=== PATIENT | female | born 1990 | race Caucasian/White ===

== ENCOUNTER 2017-05-30 05:59 | Observation (INO) | payer OTHER ==
[2017-05-30] VITALS (7 sets, daily range): BP systolic 103–109; BP diastolic 67–70; PULSE 90–107; TEMP 36.4–36.7; O2SAT 95–99; Ht 175.3 cm; Wt 83.5 kg
[~2017-05-30] VITALS: Ht 175.3 cm; Wt 83.5 kg
[~2017-05-30 05:59] MED LIST: BCPILLS PO; LRT5 PO; OXYCODONE/ACETAMINOPHEN 5-325 TAB PO SCH
[2017-05-30] MEDS ORDERED: FERR325T5 PO (06:25)
[2017-05-30 06:32] LABS: BASO % 0.2 %; BASO ABS # 0.02 K/uL (0-0.2); COMPLETE YES; EOS % 0.8 %; HEMATOCRIT 41.8 % (37-47); IG% 0.2 %; LYMPH % 14.5 %; LYMPH ABS # 1.83 K/uL (1.2-3.4); MEAN CELL VOLUME 89.9 fL (80-100); MEAN CORPUSCULAR HEMOGLOBIN 29.7 pg (25-34); MONO % 4.4 %; NEUT % 79.9 %; PLATELET COUNT 269 K/uL (130-400); RED BLOOD COUNT 4.65 M/uL (4.2-5.4); WHITE BLOOD COUNT 12.61 K/uL (4.8-10.8)
[2017-05-30] MEDS ORDERED: SODIUM CHLORIDE 0.9% 1000ML 1,000 ML IV STA ×2 (06:34→09:11)
[2017-05-30] MEDS ORDERED: ONDANSETRON INJ 2 MG/ML 2 ML VIAL IV STA (06:34)
[2017-05-30] MEDS ORDERED: FENTANYL CITRATE INJ 50 MCG/1 ML 2 ML VIAL IV STA ×2 (06:34→08:57)
[2017-05-30 06:41] LABS: URINE APPEARANCE CLEAR (CLEAR); URINE BILIRUBIN NEG (NEG); URINE COLOR YELLOW; URINE EPITHELIAL CELL AUTO 20-30 /lpf (0-5); URINE NITRITE NEG (NEG); URINE PH 8.5 (4.5-7.5); URINE SPECIFIC GRAVITY 1.016 (1.000-1.030); UROBILINOGEN NEG (NEG); ZZUR CULT IF INDIC CLEAN CATCH YES
[2017-05-30 06:42] LABS: MANUAL MICROSCOPIC REQUIRED? NO; REVIEW REQ? NO
--- NOTE | 2017-05-30 06:45 | EMERGENCY ROOM VISIT NOTE ---
History Report prepared by Jacinda: Linda Siddiqui Under the Supervision of: Dr. Antony Washington M.D. First contact with patient: 06:32 Chief Complaint: ABDOMINAL PAIN Stated Complaint: ABD PAIN Nursing Triage Summary: Pt complains of lower abdominal pain since 7pm last night. Denies any nausea, vomiting or diarrhea. +urinary frequency History of Present Illness The patient is a 27 year old female who presents to the Emergency Room with complaints of persistent lower abdominal pain that began around 1900 last evening. She currently rates her discomfort as a 7/10 in severity. The patient reports having similar pain in the past, but denies ever this intense. She states that she typically has to take iron supplements around her menstrual cycles due to intense cramps. The patient denies any history of ovarian cysts. She states that her pain is worsened with movement. The patient denies any chance of and denies any prior pregnancies. She states that her last normal menstrual period was two weeks ago. The patient denies any contraceptive use. She associates chills with her symptoms today. The patient reports a history of having lymph nodes removed from her abdomen when she was younger, but denies any appendectomy or cholecystectomy. She states that her last bowel movement was around 1900, denying any constipation or diarrhea. The patient denies any active medical problems or being on any medications. She denies any fever, cough, congestion, nausea, vomiting, urinary symptoms, or vaginal burning or itching. Source of History: patient Onset: 1900 last evening Position: abdomen (lower) Symptom Intensity: 7/10 Timing: other (persistent) Modifying Factors (Worsening): movement Associated Symptoms: + chills, No fevers, No cough, No nausea, No vomiting, No diarrhea, No urinary symptoms Review of Systems See HPI for pertinent positives and negatives. A total of ten systems were reviewed and were otherwise negative. Past Medical & Surgical Medical Problems: (1) Asthma Surgical Problems: (1) H/O wisdom tooth extraction Family History Cancer Gallbladder disease Hypertension Social History Smoking Status: Never Smoker Alcohol Use: none Marital Status: Housing Status: lives with significant other Occupation Status: employed Current/Historical Medications Scheduled Ferrous Sulfate (Ferrous Sulfate), 325 MG PO DAILY Scheduled PRN Oxycodone/Acetaminophen 5MG/325MG (Percocet 5MG/325MG), 1-2 TABLETS PO Q4H PRN for Pain Allergies Coded Allergies: No Known Allergies (Unverified , 05/30/17) Physical Exam Vital Signs Date Time Temp Pulse Resp B/P (MAP) Pulse Ox O2 Delivery O2 Flow Rate FiO2 05/30/17 10:00 36.5 74 16 115/75 99 05/30/17 07:55 62 16 109/64 98 Room Air 05/30/17 06:03 37.0 101 18 104/67 96 Room Air Physical Exam GENERAL: Awake, alert, in no distress HENT: Normocephalic, atraumatic. Dry mucous membranes. EYES: Normal conjunctiva. Sclera non-icteric. NECK: Supple. No nuchal rigidity. FROM. No JVD. RESPIRATORY: Clear to auscultation. CARDIAC: Regular rate, normal rhythm. Extremities warm and well perfused. Pulses equal. ABDOMEN: Soft, non-distended. Right lower quadrant tenderness to palpation at McBurneys point, no peritoneal signs. No rebound or guarding. No masses. RECTAL: Deferred. MUSCULOSKELETAL: Chest examination reveals no tenderness. The back is symmetrical on inspection without obvious abnormality. There is no CVA tenderness to palpation. No joint edema. LOWER EXTREMITIES: Calves are equal size bilaterally and non-tender. No edema. No discoloration. NEURO: Normal sensorium. No sensory or motor deficits noted. SKIN: No rash or jaundice noted. Medical Decision & Procedures ER Provider Diagnostic Interpretation: Radiology results as stated below per my review and radiologist interpretation: PELVIC ULTRASOUND, TRANSABDOMINAL AND TRANSVAGINAL HISTORY: Right lower quadrant abdominal pain. COMPARISON: None. FINDINGS: Uterus: Unremarkable. Endometrial stripe: 5 mm in thickness. Right ovary: Normal in size and demonstrates normal color flow. Left ovary: Normal in size and demonstrates normal color flow. A 1.4 cm cyst. Miscellaneous:No pelvic free fluid. IMPRESSION: No significant abnormality identified within the pelvis. Electronically signed by: Wilbur Terrazas M.D. 05/30/2017 8:12 AM Dictated Date/Time: 05/30/2017 8:09 AM ABD/PELVIS IV CONTRAST ONLY CT DOSE: 411.61 mGy.cm HISTORY: Pain RLQ pain - r/o appendicitis TECHNIQUE: Multiaxial CT images of the abdomen and pelvis were performed following the use of intravenous contrast. A dose lowering technique was utilized adhering to the principles of ALARA. COMPARISON STUDY: None. FINDINGS: Lung bases are clear. Liver spleen and pancreas enhance uniformly. Kidneys negative for hydronephrosis. Bowel pattern overall is nonobstructive. The appendix is somewhat distended at 8 mm. There is minimal/mild periappendiceal infiltrative change. There is no evidence for abscess collection or obstruction. Bladder is midline. There is no significant free fluid within the pelvic cul-de-sac. There is no significant abdominal pelvic or inguinal adenopathy. IMPRESSION: 1. Acute appendicitis with mild distention of the appendix to 8 mm. 2. Minimal/mild periappendiceal infiltrative change with no evidence for abscess collection or obstruction. 3. Study is otherwise negative. The above report was generated using voice recognition software. It may contain grammatical, syntax or spelling errors. Electronically signed by: Pako Joiner M.D. 05/30/2017 9:00 AM Dictated Date/Time: 05/30/2017 8:57 AM Laboratory Results 05/30/17 06:15 Red Blood Count 4.65, Mean Corpuscular Volume 89.9, Mean Corpuscular Hemoglobin 29.7, Mean Corpuscular Hemoglobin Concent 33.0, Mean Platelet Volume 9.0, Neutrophils (%) (Auto) 79.9, Lymphocytes (%) (Auto) 14.5, Monocytes (%) (Auto) 4.4, Eosinophils (%) (Auto) 0.8, Basophils (%) (Auto) 0.2, Neutrophils # (Auto) 10.07, Lymphocytes # (Auto) 1.83, Monocytes # (Auto) 0.56, Eosinophils # (Auto) 0.10, Basophils # (Auto) 0.02 05/30/17 06:15 Test 05/30/17 06:15 05/30/17 06:34 White Blood Count 12.61 K/uL (4.8-10.8) Red Blood Count 4.65 M/uL (4.2-5.4) Hemoglobin 13.8 g/dL (12.0-16.0) Hematocrit 41.8 % (37-47) Mean Corpuscular Volume 89.9 fL (80-100) Mean Corpuscular Hemoglobin 29.7 pg (25-34) Mean Corpuscular Hemoglobin Concent 33.0 g/dl (32-36) Platelet Count 269 K/uL (130-400) Mean Platelet Volume 9.0 fL (7.4-10.4) Neutrophils (%) (Auto) 79.9 % Lymphocytes (%) (Auto) 14.5 % Monocytes (%) (Auto) 4.4 % Eosinophils (%) (Auto) 0.8 % Basophils (%) (Auto) 0.2 % Neutrophils # (Auto) 10.07 K/uL (1.4-6.5) Lymphocytes # (Auto) 1.83 K/uL (1.2-3.4) Monocytes # (Auto) 0.56 K/uL (0.11-0.59) Eosinophils # (Auto) 0.10 K/uL (0-0.5) Basophils # (Auto) 0.02 K/uL (0-0.2) RDW Standard Deviation 39.1 fL (36.4-46.3) RDW Coefficient of Variation 11.9 % (11.5-14.5) Immature Granulocyte % (Auto) 0.2 % Immature Granulocyte # (Auto) 0.03 K/uL (0.00-0.02) Urine Color YELLOW Urine Appearance CLEAR (CLEAR) Urine pH 8.5 (4.5-7.5) Urine Specific [place] 1.016 (1.000-1.030) Urine Protein NEG (NEG) Urine Glucose (UA) NEG (NEG) Urine Ketones NEG (NEG) Urine Occult Blood TRACE (NEG) Urine Nitrite NEG (NEG) Urine Bilirubin NEG (NEG) Urine Urobilinogen NEG (NEG) Urine Leukocyte Esterase MODERATE (NEG) Urine WBC (Auto) 1-5 /hpf (0-5) Urine RBC (Auto) 5-10 /hpf (0-4) Urine Hyaline Casts (Auto) 1-5 /lpf (0-5) Urine Epithelial Cells (Auto) 20-30 /lpf (0-5) Urine Bacteria (Auto) 1+ (NEG) Anion Gap 7.0 mmol/L (3-11) Est Creatinine Clear Calc Drug Dose 120.5 ml/min Estimated GFR () 115.4 Estimated GFR (Non- 99.5 BUN/Creatinine Ratio 15.7 (10-20) Calcium Level 9.1 mg/dl (8.5-10.1) Total Bilirubin 0.9 mg/dl (0.2-1) Aspartate Amino Transf (AST/SGOT) 12 U/L (15-37) Alanine Aminotransferase (ALT/SGPT) 23 U/L (12-78) Alkaline Phosphatase 48 U/L (45-117) Total Protein 7.8 gm/dl (6.4-8.2) Albumin 4.2 gm/dl (3.4-5.0) Globulin 3.6 gm/dl (2.5-4.0) Albumin/Globulin Ratio 1.2 (0.9-2) Lipase 100 U/L (73-393) Urine Test NEG (NEG) Laboratory results reviewed by me Medications Administered Medications (Trade) Dose Ordered Sig/Alla Route Start Time Stop Time Status Last Admin Dose Admin Sodium Chloride 1,000 ml @ 999 mls/hr Q1H1M STAT IV 05/30/17 06:34 05/30/17 07:34 DC 05/30/17 06:54 999 MLS/HR Fentanyl Citrate (Fentanyl Inj) 50 mcg NOW STAT IV 05/30/17 06:34 05/30/17 06:42 DC 05/30/17 06:56 50 MCG Ondansetron HCl (Zofran Inj) 4 mg NOW STAT IV 05/30/17 06:34 05/30/17 06:42 DC 05/30/17 06:55 4 MG Fentanyl Citrate (Fentanyl Inj) 50 mcg NOW STAT IV 05/30/17 08:57 05/30/17 08:58 DC 05/30/17 09:13 50 MCG Sodium Chloride 1,000 ml @ 200 mls/hr Q5H STAT IV 05/30/17 09:11 05/30/17 14:10 DC 05/30/17 09:18 200 MLS/HR Piperacillin Sod/ Tazobactam Sod (Zosyn Iv) 3.375 gm NOW STAT IV 05/30/17 09:11 05/30/17 09:13 DC 05/30/17 09:31 3.375 GM Bupivacaine HCl (Marcaine 0.5% MPF Inj) 30 ml STK-MED ONCE .ROUTE 05/30/17 11:54 05/30/17 11:55 DC 05/30/17 12:35 10 ML Lactated Ringer's 1,000 ml @ 100 mls/hr Q10H IV 05/30/17 13:08 06/29/17 13:07 05/30/17 15:55 100 MLS/HR ED Course 0633: The patient was evaluated in room B4B. A complete history and physical exam was performed. 0634: Ordered Zofran Inj 4 mg IV, Fentanyl Inj 50 mcg IV, Sodium Chloride 1000 ml @ 999 mls/hr IV. 0857: Ordered Fentanyl Inj 50 mcg IV. 0908: I reevaluated the patient and she is resting comfortably. I discussed the exam findings with her and I discussed the treatment plan. She verbalized complete understanding and agreement. She will be evaluated for further treatment and General Surgery will be consulted. 0909: I discussed the patients case with Dr. Elder, General Surgery. He is going to evaluate the patient for further treatment. 0911: Ordered Zosyn IV 3.375 gm IV, Sodium Chloride 1000 ml @ 200 mls/hr IV. Medical Decision Triage Nursing notes reviewed. The patient's presentation and history were concerning for Ruptured hemorrhagic cyst, torsion, ectopic , appendicitis, diverticulitis, renal stone, UTI , pyelonephritis, STD, PID. I reviewed the patient's past medical history, medications, and the nursing notes as described above. Patient is a 27-year-old woman presents to emergency department with right lower quadrant pain onset last night around 7 PM, denies nausea vomiting diarrhea. History of present illness. Arrival the patient is in no acute distress, afebrile with stable vital signs. She does have right lower quadrant tenderness over McBurneys point, no peritoneal signs. Concerning the patient is a woman of childbearing age while appendicitis is in the differential, equally likely possibilities include hemorrhagic cyst, ovarian torsion this will first evaluated with transvaginal ultrasound. If Ultrasound unremarkable then will consider CT scan at that point. Patient is agreeable with this approach. WBC elevated to 10.5. TVUS unremarkable. CT abd/pel with uncomplicated appendicitis. Given abx. Case d/w surgery and admitted for further management. Medication Reconcilliation Current Medication List: was personally reviewed by me Blood Pressure Screening Patient's blood pressure: Normal blood pressure Blood pressure disposition: Did not require urgent referral Consults Time Called: 906 Consulting Physician: Dr. Elder, General Surgery Returned Call: [phone] I discussed the patients case with Dr. Elder, General Surgery. He is going to evaluate the patient for further treatment. Impression Primary Impression: Appendicitis Scribe Attestation The scribe's documentation has been prepared under my direction and personally reviewed by me in its entirety. I confirm that the note above accurately reflects all work, treatment, procedures, and medical decision making performed by me. Departure Information Dispostion Being Evaluated By Surgeon Prescriptions Oxycodone/Acetaminophen 5MG/325MG (PERCOCET 5MG/325MG) Tab 1-2 TABLETS PO Q4H Y for Pain, #30 TAB Prov: Ventura Rivero JR.,PA-C 05/30/17 Referrals No Doctor, Assigned (PCP)
[2017-05-30 07:05] LABS: BUN/CREATININE RATIO 15.7 (10-20); CALCIUM 9.1 mg/dl (8.5-10.1); CREATININE 0.81 mg/dl (0.60-1.20); POTASSIUM 3.9 mmol/L (3.5-5.1)
[2017-05-30 07:07] LABS: ALB/GLOB RATIO 1.2 (0.9-2)
--- NOTE | 2017-05-30 08:13 | DIAGNOSTIC IMAGING REPORT ---
PELVIC ULTRASOUND, TRANSABDOMINAL AND TRANSVAGINAL HISTORY: Right lower quadrant abdominal pain. COMPARISON: None. FINDINGS: Uterus: Unremarkable. Endometrial stripe: 5 mm in thickness. Right ovary: Normal in size and demonstrates normal color flow. Left ovary: Normal in size and demonstrates normal color flow. A 1.4 cm cyst. Miscellaneous:No pelvic free fluid. IMPRESSION: No significant abnormality identified within the pelvis. Electronically signed by: Wilbur Terrazas M.D. 05/30/2017 8:12 AM Dictated Date/Time: 05/30/2017 8:09 AM
[2017-05-30] MEDS ORDERED: OPTIRAY 320 IV PRN (08:45)
--- NOTE | 2017-05-30 09:01 | DIAGNOSTIC IMAGING REPORT ---
ABD/PELVIS IV CONTRAST ONLY CT DOSE: 411.61 mGy.cm HISTORY: Pain RLQ pain - r/o appendicitis TECHNIQUE: Multiaxial CT images of the abdomen and pelvis were performed following the use of intravenous contrast. A dose lowering technique was utilized adhering to the principles of ALARA. COMPARISON STUDY: None. FINDINGS: Lung bases are clear. Liver spleen and pancreas enhance uniformly. Kidneys negative for hydronephrosis. Bowel pattern overall is nonobstructive. The appendix is somewhat distended at 8 mm. There is minimal/mild periappendiceal infiltrative change. There is no evidence for abscess collection or obstruction. Bladder is midline. There is no significant free fluid within the pelvic cul-de-sac. There is no significant abdominal pelvic or inguinal adenopathy. IMPRESSION: 1. Acute appendicitis with mild distention of the appendix to 8 mm. 2. Minimal/mild periappendiceal infiltrative change with no evidence for abscess collection or obstruction. 3. Study is otherwise negative. The above report was generated using voice recognition software. It may contain grammatical, syntax or spelling errors. Electronically signed by: Pako Joiner M.D. 05/30/2017 9:00 AM Dictated Date/Time: 05/30/2017 8:57 AM
[2017-05-30] MEDS ORDERED: PIPERACILLIN/TAZOBACTAM 3.375 GM/100ML D5W IV STA (09:11)
--- NOTE | 2017-05-30 09:54 | History and Physical ---
History & Physical Date & Time of Service: May 30, 2017 at 09:48 Chief Complaint: Abd Pain Primary Care Physician: No Doctor, Assigned History of Present Illness 27 y/o female with lower abdominal pain began last evening, continued throughout the night, now localizing to RLQ. No nausea, vomiting or fever. No previous abdominal pain. Had crackers around 2 AM. Past Medical/Surgical History Medical Problems: (1) Asthma Status: Chronic Surgical Problems: (1) H/O wisdom tooth extraction Status: Resolved 2) groin lymph node excision as Family History Cancer Gallbladder disease Hypertension Social History Smoking Status: Never Smoker Alcohol Use: occasionally Drug Use: none Marital Status: Housing status: lives with family Occupational Status: employed Multi-Drug Resistant Organisms History of MDRO: No Allergies Coded Allergies: No Known Allergies (Unverified , 05/30/17) Home Medications Scheduled Ferrous Sulfate (Ferrous Sulfate), 325 MG PO DAILY Review of Systems Constitutional: + chills, No fever Abdomen: + pain, No nausea, No vomiting, No diarrhea, No constipation Physical Exam Vital Signs Date Time Temp Pulse Resp B/P (MAP) Pulse Ox O2 Delivery O2 Flow Rate FiO2 05/30/17 07:55 62 16 109/64 98 Room Air 05/30/17 06:03 37.0 101 18 104/67 96 Room Air General Appearance: WD/WN, no apparent distress ENT: normal ENT inspection Respiratory/Chest: normal breath sounds, no respiratory distress Cardiovascular: regular rate, rhythm Abdomen/GI: soft, + tenderness (RLQ) Extremities/Musculoskelatal: normal inspection Diagnostics Laboratory Results Results Past 24 Hours Test 05/30/17 06:15 05/30/17 06:34 Range/Units White Blood Count 12.61 4.8-10.8 K/uL Red Blood Count 4.65 4.2-5.4 M/uL Hemoglobin 13.8 12.0-16.0 g/dL Hematocrit 41.8 37-47 % Mean Corpuscular Volume 89.9 80-100 fL Mean Corpuscular Hemoglobin 29.7 25-34 pg Mean Corpuscular Hemoglobin Concent 33.0 32-36 g/dl Platelet Count 269 130-400 K/uL Mean Platelet Volume 9.0 7.4-10.4 fL Neutrophils (%) (Auto) 79.9 % Lymphocytes (%) (Auto) 14.5 % Monocytes (%) (Auto) 4.4 % Eosinophils (%) (Auto) 0.8 % Basophils (%) (Auto) 0.2 % Neutrophils # (Auto) 10.07 1.4-6.5 K/uL Lymphocytes # (Auto) 1.83 1.2-3.4 K/uL Monocytes # (Auto) 0.56 0.11-0.59 K/uL Eosinophils # (Auto) 0.10 0-0.5 K/uL Basophils # (Auto) 0.02 0-0.2 K/uL RDW Standard Deviation 39.1 36.4-46.3 fL RDW Coefficient of Variation 11.9 11.5-14.5 % Immature Granulocyte % (Auto) 0.2 % Immature Granulocyte # (Auto) 0.03 0.00-0.02 K/uL Urine Color YELLOW Urine Appearance CLEAR CLEAR Urine pH 8.5 4.5-7.5 Urine Specific [place] 1.016 1.000-1.030 Urine Protein NEG NEG Urine Glucose (UA) NEG NEG Urine Ketones NEG NEG Urine Occult Blood TRACE NEG Urine Nitrite NEG NEG Urine Bilirubin NEG NEG Urine Urobilinogen NEG NEG Urine Leukocyte Esterase MODERATE NEG Urine WBC (Auto) 1-5 0-5 /hpf Urine RBC (Auto) 5-10 0-4 /hpf Urine Hyaline Casts (Auto) 1-5 0-5 /lpf Urine Epithelial Cells (Auto) 20-30 0-5 /lpf Urine Bacteria (Auto) 1+ NEG Sodium Level 139 136-145 mmol/L Potassium Level 3.9 3.5-5.1 mmol/L Chloride Level 105 98-107 mmol/L Carbon Dioxide Level 27 21-32 mmol/L Anion Gap 7.0 3-11 mmol/L Blood Urea Nitrogen 13 7-18 mg/dl Creatinine 0.81 0.60-1.20 mg/dl Est Creatinine Clear Calc Drug Dose 120.5 ml/min Estimated GFR () 115.4 Estimated GFR (Non- 99.5 BUN/Creatinine Ratio 15.7 10-20 Random Glucose 97 70-99 mg/dl Calcium Level 9.1 8.5-10.1 mg/dl Total Bilirubin 0.9 0.2-1 mg/dl Aspartate Amino Transf (AST/SGOT) 12 15-37 U/L Alanine Aminotransferase (ALT/SGPT) 23 12-78 U/L Alkaline Phosphatase 48 45-117 U/L Total Protein 7.8 6.4-8.2 gm/dl Albumin 4.2 3.4-5.0 gm/dl Globulin 3.6 2.5-4.0 gm/dl Albumin/Globulin Ratio 1.2 0.9-2 Lipase 100 73-393 U/L Urine Test NEG NEG Microbiology Results 05/30/17 Urine Culture, Received Pending Diagnostic Radiology ABD/PELVIS IV CONTRAST ONLY CT DOSE: 411.61 mGy.cm HISTORY: Pain RLQ pain - r/o appendicitis TECHNIQUE: Multiaxial CT images of the abdomen and pelvis were performed following the use of intravenous contrast. A dose lowering technique was utilized adhering to the principles of ALARA. COMPARISON STUDY: None. FINDINGS: Lung bases are clear. Liver spleen and pancreas enhance uniformly. Kidneys negative for hydronephrosis. Bowel pattern overall is nonobstructive. The appendix is somewhat distended at 8 mm. There is minimal/mild periappendiceal infiltrative change. There is no evidence for abscess collection or obstruction. Bladder is midline. There is no significant free fluid within the pelvic cul-de-sac. There is no significant abdominal pelvic or inguinal adenopathy. IMPRESSION: 1. Acute appendicitis with mild distention of the appendix to 8 mm. 2. Minimal/mild periappendiceal infiltrative change with no evidence for abscess collection or obstruction. 3. Study is otherwise negative. The above report was generated using voice recognition software. It may contain grammatical, syntax or spelling errors. Electronically signed by: Pako Joiner M.D. 05/30/2017 9:00 AM Dictated Date/Time: 05/30/2017 8:57 AM Impression Assessment and Plan acute appendicitis Seen with Dr. Elder. Will proceed with laparoscopic appendectomy this morning. She had Zosyn at 9:30. He discussed the procedure with her including risks of bleeeding, infection or abscess, injury to other structures or possibility of converting to an open procedure. Patient seen and examined, labs and imaging personally reviewed, agree with above. 27 year old female with acute, non perforated appendicitis, plan for laparoscopic appendectomy. Risks reviewed, questions answered, patient agrees to proceed with surgery as planned. Sarah Elder, DO
[2017-05-30] MEDS ORDERED: HYDROmorphone INJ 1 MG/ML SYR IV PRN (10:45)
[2017-05-30] MEDS ORDERED: EpHEDrine SULFATE INJ 50 MG/ML AMP IV PRN (10:45)
[2017-05-30] MEDS ORDERED: ONDANSETRON INJ 2 MG/ML 2 ML VIAL IV PRN (10:45)
[2017-05-30] MEDS ORDERED: ATROPINE SULFATE 0.1 MG/ML 5ML SYR IV PRN (10:45)
[2017-05-30] MEDS ORDERED: FENTANYL CITRATE INJ 50 MCG/1 ML 2 ML VIAL IV PRN (10:45)
[2017-05-30] MEDS ORDERED: ROCURONIUM BROMIDE 10 MG/ML 5 ML VIAL IV ONE (11:48)
[2017-05-30] MEDS ORDERED: GLYCOPYRROLATE INJ 0.2 MG/ML VIAL ONE (11:48)
[2017-05-30] MEDS ORDERED: LIDOCAINE HCL 2% 2 ML VIAL (20MG/ML) ONE (11:48)
[2017-05-30] MEDS ORDERED: NEOSTIGMINE METHYLSULFATE 5 MG/5 ML SYR ONE (11:48)
[2017-05-30] MEDS ORDERED: ONDANSETRON INJ 2 MG/ML 2 ML VIAL ONE (11:48)
[2017-05-30] MEDS ORDERED: MIDAZOLAM HCL 1 MG/ML 2ML VIAL ONE (11:48)
[2017-05-30] MEDS ORDERED: PROPOFOL IV EMULSION 10 MG/ML 20 ML VIAL IV ONE (11:48)
[2017-05-30] MEDS ORDERED: FENTANYL CITRATE INJ 50 MCG/1 ML 2 ML VIAL ONE (11:48)
[2017-05-30] MEDS ORDERED: DEXAMETHASONE SOD INJ 4 MG/ML VIAL ONE (11:48)
[2017-05-30] MEDS ORDERED: BUPIVACAINE 0.5 % 5 MG/1 ML MPF 30ML VIAL ONE (11:54)
[2017-05-30] MEDS ORDERED: KETOROLAC TROMETHAMINE 30 MG/ML VIAL ONE (12:57)
[2017-05-30] MEDS ORDERED: LACTATED RINGER'S 1000ML 1,000 ML IV SCH (13:08)
[2017-05-30] MEDS ORDERED: OXYC-57 PO ×2 (13:12→13:20)
--- NOTE | 2017-05-30 13:12 | [facility] Post Operative Brief Note ---
Immediate Operative Summary Operative Date May 30, 2017. Pre-Operative Diagnosis acute appendicitis Post-Operative Diagnosis acute nonperforated, suppurative appendicitis Procedure(s) Performed laparoscopic appendectomy Surgeon Levon Elder DO Bottom Cager Surgeon(s) IDA Reina Estimated Blood Loss 2 mL Findings early, acute, non perforated suppurative appendicitis. bowel and abdomen explored, no other abnormalities. Good hemostasis. Specimens appendix Drains None Anesthesia GETA Complication(s) None Disposition Recovery Room / PACU
[2017-05-30] MEDS ORDERED: MoRPHine SULFATE 4 MG/ML 1 ML CARP\\VIAL IV PRN (13:15)
[2017-05-30] MEDS ORDERED: OXYCODONE/ACETAMINOPHEN 5-325 TAB PO PRN ×2 (13:15)
--- NOTE | 2017-05-30 13:15 | Discharge Instructions ---
Discharge Instructions Date of Service May 30, 2017. Admission Reason for Admission: Abd Pain Discharge Discharge Diagnosis / Problem: acute appendicitis Discharge Goals Goal(s): Decrease discomfort Activity Recommendations Activity Limitations: as noted below Lifting Limitations: no more than 10 pounds Shower/Bathe: no limitations (ok to shower) Driving or Machine Use: resume 3 days after discharge (when not taking Percocet ) . Instructions / Follow-Up Instructions / Follow-Up Dr. Elder in 2 weeks, call [phone] to schedule or if you have any questions , [address] Current Hospital Diet Patient's current hospital diet: Clear Liquid Diet Discharge Diet Recommended Diet: Regular Diet Procedures Procedures Performed: laparoscopic appendectomy Pending Studies Studies pending at discharge: yes List of pending studies: pathology Medical Emergencies . Who to Call and When: Medical Emergencies: If at any time you feel your situation is an emergency, please call 911 immediately. . Non-Emergent Contact Non-Emergency issues call your: Surgeon Call Non-Emergent contact if: you have a fever, temperature is above 101.5, your pain is not controlled, wound has increased redness, wound has increased pain . "Provider Documentation" section prepared by Ventura Rivero. . VTE Core Measure Inpt VTE Proph given/why not?: SCD's [place] Drug Monitoring Program Search Results: no issues identified
--- NOTE | 2017-05-30 13:18 | [facility] Operative Report ---
Operative Report Operative Date May 30, 2017. Pre-Operative Diagnosis acute appendicitis Post-Operative Diagnosis acute, non perforated, suppurative appendicitis Procedure(s) Performed laparoscopic appendectomy Surgeon Levon Elder DO Manager Insurance Surgeon(s) IDA Reina Estimated Blood Loss 2 mL Findings early, acute, non perforated suppurative appendicitis. bowel and abdomen explored, no other abnormalities. Good hemostasis Specimens appendix Drains None Anesthesia GETA Complication(s) None Disposition Recovery Room / PACU Indications 27 year old female with early acute appendicitis, plan for laparoscopic appendectomy. The risks of the procedure were discussed, all questions were answered, and the patient agreed to proceed with surgery as planned. Description of Procedure The patient was properly identified, consented, and taken to the operating room where she] was placed in the supine position. General endotracheal anesthesia was induced. SCDs and a safety belt were placed. Preoperative antibiotics were administered. A Car catheter was not placed. The patient's abdomen was prepped and draped in the standard sterile fashion. Surgical timeout was performed and all parties were in agreement that this was the correct patient and procedure to be performed and we continued as planned. A curvilinear infraumbilical incision was made with electrocautery and deepened down to the fascia with blunt dissection. The base of the umbilicus was grasped with a Domitila and elevated towards the ceiling. An incision was made in the midline fascia with a knife and entry into the peritoneum was confirmed. Stay suture of 0 Vicryl was placed and a Leyva trocar was inserted. The abdomen was insufflated with carbon dioxide which the patient tolerated without incident. The laparoscope was inserted and no damage from initial trocar placement was noted, no gross abnormalities were noted within the 4 quadrants the abdomen. 5 mm ports were then placed in the left lower quadrant with care not to damage the epigastric vessels, and in the suprapubic midline with care not to damage the bladder. The patient was placed in Trendelenburg position and rotated towards the left. The small bowel was swept away from the right lower quadrant. The cecum was grasped withan atraumatic grasper exposing the appendix. The appendix was mildly inflamed and there was no evidence of perforation. There was a minimal amount of turbid fluid in the pelvis which was suctioned. A window was created between the base of the appendix and the mesoappendix. A lennon loaded 30 mm endoscopic stapler was then used to divide the appendix at its base. A lennon load was then used to divide the mesoappendix. Hemostasis was good. The appendix was placed in an Endo Catch bag and removed through the umbilical port site. The right lower quadrant and pelvis was irrigated and hemostasis was found to be good. The small bowel was run for approximately 4-5 feet, and the remainder of the abomen was inspected with no abnormalities identified. 5 mm trochars were removed under direct visualization and the abdomen was allowed to collapse. The umbilical port site fascia was closed with 0 Vicryl suture. The wound was irrigated, and the skin of all ports was closed with 4-0 Monocryl subcuticular sutures. Dermabond was placed over the wounds. The patient was extubated in the operating room and taken to the PACU where she recovered without apparent incident. All sponge, instrument and needle counts were correct at the conclusion of the procedure. The patient tolerated the procedure well. I attest to the content of the Intraoperative Record and any orders documented therein. Any exceptions are noted below.
[2017-05-30] MEDS ORDERED: IV FLUIDS COMPLETED PRN (13:30)
--- NOTE | 2017-05-30 13:57 | Anesthesiology Progress Note ---
Anesthesia Post Op Note Date & Time May 30, 2017 at 13:57 Vital Signs Pain Intensity: 0 Vital Signs Past 12 Hours Date Time Temp Pulse Resp B/P (MAP) Pulse Ox O2 Delivery O2 Flow Rate FiO2 05/30/17 13:55 36.7 87 16 107/69 97 Room Air 05/30/17 13:45 61 16 108/65 96 Room Air 05/30/17 13:35 61 16 110/64 100 Oxymask 10 05/30/17 13:25 59 16 118/65 100 Oxymask 10 05/30/17 13:18 37. 91 16 128/65 100 Oxymask 10 05/30/17 10:00 36.5 74 16 115/75 99 05/30/17 07:55 62 16 109/64 98 Room Air 05/30/17 06:03 37.0 101 18 104/67 96 Room Air Notes Mental Status: alert / awake / arousable, participated in evaluation Pt Amnestic to Procedure: Yes Nausea / Vomiting: adequately controlled Pain: adequately controlled Airway Patency, RR, SpO2: stable & adequate BP & HR: stable & adequate Hydration State: stable & adequate Anesthetic Complications: no major complications apparent
[2017-05-30] MEDS ORDERED: NURSING VERBAL MED ORDER ONE (20:30)
== END 2017-05-30 21:10 | disposition home or self-care (01) ==
LOC: C.EDB 06:01 → C.MSW 13:11 → ENRESERV 15:02
PROVIDERS: ADMIT Surgery; ATTEND Surgery
DX: K35.80 Unspecified acute appendicitis (principal)